=== PATIENT | female | born 1970 | race Caucasian/White ===

== ENCOUNTER 2024-07-21 09:28 | Outpatient (AMB) | payer OTHER, SELFPAY ==
[2024-07-21 09:41] VITALS: BP 138/77; PULSE 87; RESP 18; TEMP 36.3; O2SAT 96; BMI 40.8
--- NOTE | 2024-07-21 09:41 | ORTHONT_ITS ---
Vital signs 07/21/24 09:41 Height 1.6 m Height Method Stated Weight 104.525 kg Weight Measurement Method Standing Scale BMI 40.8 BP 138/77 H Blood Pressure Source Automatic Cuff Blood Pressure Location Right Upper Arm Position Sitting Respiration 18 Pulse 87 Pulse Source Monitor Temp 97.3 F Temp Source Temporal Artery Scan Pulse Oximetry (%) 96 Oxygen Delivery Method Room Air Med/Allergies Allergies & Medications Allergies No Known Allergies Allergy (Verified 07/21/24 09:42) Medication Reconciliation meloxicam 7.5 mg tablet 7.5 mg PO QDAY #45 tabs 07/21/24 [Rx] Exam Exam Patient is in no acute distress and is cooperative with the examination today. Breathing is nonlabored. In no respiratory distress. Patient has no paraspinal tenderness. Spinal deformity cannot be appreciated. The gait of the patient is nonantalgic Bilateral extremities were evaluated and demonstrates sensation intact to light touch. Palpable pedal pulses are present. No significant edema is present. Bilateral knees were examined and the patient has full strength and range of motion.. The right hip was examined. Patient was able to flex to 90 degrees, adduct to 30 degrees, abduct to 40 degrees, internally rotate to 20 degrees, and externally rotate to 20 degrees. Patient has a negative logroll. Stinchfield is negative. The patient is nontender diffusely to touch. The left hip was examined. Patient was able to flex to 90 degrees, adduct to 30 degrees, abduct to 40 degrees, internally rotate to 20 degrees, and externally rotate to 20 degrees. Patient has a Positive logroll and positive Stinchfield X-rays demonstrate significant arthritis of bilateral hips. She has complete joint space obliteration and sclerosis of the femoral head Assessment and Plan Problem List (1) Bilateral hip joint arthritis: Status: Acute Plan: Patient is a pleasant 54-year-old female with bilateral hip pain and arthritis. We discussed different treatment options. We discussed that we recommend weight loss at this time. We will try anti-inflammatories as well as a cortisone injection of the left hip to help us better differentiate her hip from her back pain. We will see her back after her intra-articular hip injection. Office Procedures GNS Level of Care Nursing/Assessment Patient Status: Initial/New Patient Nursing Assessment/Reassesment: Medication Reconciliation and Update PMH in EMR Coordination of Care: Complex Care and Chronic Disease 1-5, Consent,records obtained, informed consent, 1 Ins Authorization, Lab and Imaging orders, Results/Orders obtained and Staff clarify orders New Patient Charge New Patient Point Assignment: 1089 New Patient Point Charge: DRAPERY HEAD FORMER Level 3 (9098-1084) [place] Intake Visit Data Collection New Patient or Established: New Patient (never been to [facility]) Reason for Visit:: BILATERAL OSTEOARTHRITIS HIP Seen by Clinical Staff ONLY (RN/MA): No 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 PCP or OBGYN visit in last 3 months: Yes Hx Now: No Do You Feel Safe at Home: Yes Authorities Contacted: N/A Questionairres Past Medical History Past Medical History Have you ever been diagnosed with any of the following: Respiratory Problems Smoking: No Smoking Cessation Counseling: No Smoking Exposure: No Tobacco Use: No Subjective Visit Visit for: new patient and hip (BILATERAL ) Immunization / Flu Flu Vaccine in the Last 12 Months: Yes Flu Vaccine Exclusion Criteria: Already Received History of Present Illness Chief complaint: Bilateral hip pain Maryam is a 54-year-old female with bilateral hip pain worse on the left. This has been ongoing for Over a year. She is on [place] because of the pain. She has gained about 40 pounds recently. She does have a history of back pain and reportedly has 3 herniated disc. The majority of the pain is in the left groin. She has difficulty putting on socks and shoes Personal History Red flag PMH: none Pain Pain level (0-10): 8 Pain duration: 1 YEAR Pain location: groin Pain quality: sharp and dull Pain timing: night and increases with activity Associated signs & symptoms: stiffness (WHEN SHE STANDS UP FROM SITTING ) Ambulatory data Ambulatory device: cane Walking distance (minutes): 1 Treatments Number of previous injections: 0 Number of Physical Therapy sessions: 0 Improvement with NSAIDS: n/a Review of Systems Review of Systems: All systems negative unless otherwise noted in HPI.
== END 2024-07-21 09:57 | disposition home or self-care (01) ==
LOC: HODSRG 09:28
PROVIDERS: PCP Physician Assistant; Referring Provider Physician Assistant; Supervising Provider Orthopaedic Surgery Adult Reconstructive Orthopaedic Surgery; Visit Provider Orthopaedic Surgery Adult Reconstructive Orthopaedic Surgery
DX: M16.0 Bilateral primary osteoarthritis of hip (principal); M25.562 Pain in left knee; M25.561 Pain in right knee
CPT/HCPCS: 99203; G0463

== ENCOUNTER 2024-09-06 10:43 | Outpatient (AMB) | payer MEDICAID, SELFPAY ==
--- NOTE | 2024-09-06 11:11 | ORTHONT_ITS ---
Vital signs 09/06/24 11:12 Height 1.6 m Height Method Stated Weight 97.749 kg Weight Measurement Method Standing Scale BMI 38.2 BP 149/92 H Blood Pressure Source Automatic Cuff Blood Pressure Location Left Upper Arm Position Sitting Respiration 18 Pulse 93 Pulse Source Monitor Temp 97.7 F Temp Source Temporal Artery Scan Pulse Oximetry (%) 95 Oxygen Delivery Method Room Air Med/Allergies Allergies & Medications Allergies No Known Allergies Allergy (Verified 09/06/24 11:12) Medication Reconciliation meloxicam 7.5 mg tablet 7.5 mg PO QDAY #45 tabs 07/21/24 [Rx Confirmed 09/06/24] Exam Exam Patient is in no acute distress and is cooperative with the examination today. Breathing is nonlabored. In no respiratory distress. Patient has no paraspinal tenderness. Spinal deformity cannot be appreciated. The gait of the patient is nonantalgic Bilateral extremities were evaluated and demonstrates sensation intact to light touch. Palpable pedal pulses are present. No significant edema is present. Bilateral knees were examined and the patient has full strength and range of motion.. The right hip was examined. Patient was able to flex to 90 degrees, adduct to 30 degrees, abduct to 40 degrees, internally rotate to 20 degrees, and externally rotate to 20 degrees. Patient has a negative logroll. Stinchfield is negative. The patient is nontender diffusely to touch. The left hip was examined. Patient was able to flex to 90 degrees, adduct to 30 degrees, abduct to 40 degrees, internally rotate to 20 degrees, and externally rotate to 20 degrees. Patient has a Positive logroll and positive Stinchfield X-rays demonstrate significant arthritis of bilateral hips. She has complete joint space obliteration and sclerosis of the femoral head Assessment and Plan Problem List (1) Bilateral hip joint arthritis: Status: Acute Plan: Patient is a pleasant 54-year-old female with bilateral hip pain and arthritis. We discussed different treatment options. We discussed that we recommend weight loss at this time. She did receive over 5 days relief with the last hip injection. The pain is coming back. She has lost 10 pounds since we last saw her. We would like for her to lose More weight if possible. We discussed total hip replacement in great detail today. It would be done from a lateral approach for her Office Procedures GNS Level of Care Nursing/Assessment Patient Status: Established Patient Nursing Assessment/Reassesment: Medication Reconciliation, Update PMH in EMR and Vital Signs Coordination of Care: Complex Care and Chronic Disease 1-5, Education Complex Pt/Fam, Consent,records obtained, informed consent, Results/Orders obtained and Staff clarify orders Established Patient Charge Established Patient Point Assignment: 95 Established Patient Point Charge: EP Level 3 (80-115) [place] Intake Visit Data Collection New Patient or Established: Established Patient (seen at [facility] within 3 years) Reason for Visit:: HIP INJ FOLLOW UP Seen by Clinical Staff ONLY (RN/MA): No PCP or OBGYN visit in last 3 months: Yes Hx Now: No Do You Feel Safe at Home: Yes Authorities Contacted: N/A Questionairres Past Medical History Past Medical History Have you ever been diagnosed with any of the following: Respiratory Problems Smoking: No Smoking Cessation Counseling: No Smoking Exposure: No Tobacco Use: No Subjective Visit Visit for: follow up visit, hip and injections Immunization / Flu Flu Vaccine in the Last 12 Months: No Flu Vaccine Exclusion Criteria: No Exclusion Criteria History of Present Illness Chief complaint: Bilateral hip pain Maryam is a 54-year-old female with bilateral hip pain worse on the left. This has been ongoing for Over a year. She is on [place] because of the pain. She does have a history of back pain and reportedly has 3 herniated disc. The majority of the pain is in the left groin. She has difficulty putting on socks and shoes Personal History Red flag PMH: none Pain Pain level (0-10): 9 Pain duration: ALL DAY Pain location: groin Pain quality: sharp and dull Pain timing: night and increases with activity Associated signs & symptoms: other (specify) (LOCKING) Ambulatory data Ambulatory device: cane Walking distance (minutes): 1 Treatments Number of previous injections: 1 Improvement with previous injections: No Number of Physical Therapy sessions: 0 Improvement with PT: No Improvement with NSAIDS: no Review of Systems Review of Systems: All systems negative unless otherwise noted in HPI.
[2024-09-06 11:12] VITALS: BP 149/92; PULSE 93; RESP 18; TEMP 36.5; O2SAT 95; BMI 38.2
--- NOTE | 2024-09-06 11:19 | XR_ITS ---
Examination: Bilateral hips, AP pelvis, 5 views Technique: AP, lateral views both hips, AP pelvis, 5 views Exam date and time: September 06, 2024 11:39 AM INDICATIONS: Bilateral hip pain beginning 4 years ago. FINDINGS: Severe narrowing bilateral hip joints with subarticular sclerosis Prominent osteopenia Hips bones of the pelvis intact IMPRESSION: Advanced bilateral hip osteoarthritis
== END 2024-09-06 11:21 | disposition home or self-care (01) ==
PROVIDERS: PCP Physician Assistant; Referring Provider Physician Assistant; Supervising Provider Orthopaedic Surgery Adult Reconstructive Orthopaedic Surgery; Visit Provider Orthopaedic Surgery Adult Reconstructive Orthopaedic Surgery
DX: M16.0 Bilateral primary osteoarthritis of hip (principal); M25.552 Pain in left hip; M25.551 Pain in right hip
CPT/HCPCS: 73522; 99213; G0463

== ENCOUNTER 2025-01-10 10:43 | Outpatient (AMB) | payer MEDICAID, SELFPAY ==
[2025-01-10 11:32] VITALS: BP 134/82; PULSE 82; RESP 18; TEMP 36.6; O2SAT 98; BMI 36.1
--- NOTE | 2025-01-10 11:32 | ORTHONT_ITS ---
Vital signs 01/10/25 11:32 Height 1.64 m Height Method Stated Weight 97.154 kg Weight Measurement Method Standing Scale BMI 36.1 BP 134/82 H Blood Pressure Source Automatic Cuff Blood Pressure Location Left Upper Arm Position Sitting Respiration 18 Pulse 82 Pulse Source Monitor Temp 97.8 F Temp Source Temporal Artery Scan Pulse Oximetry (%) 98 Oxygen Delivery Method Room Air Med/Allergies Allergies & Medications Allergies No Known Allergies Allergy (Verified 01/10/25 11:35) Medication Reconciliation meloxicam 7.5 mg tablet 7.5 mg PO QDAY #45 tabs 07/21/24 [Rx Confirmed 01/10/25] Exam Exam Patient is in no acute distress and is cooperative with the examination today. Breathing is nonlabored. In no respiratory distress. Patient has no paraspinal tenderness. Spinal deformity cannot be appreciated. The gait of the patient is nonantalgic Bilateral extremities were evaluated and demonstrates sensation intact to light touch. Palpable pedal pulses are present. No significant edema is present. Bilateral knees were examined and the patient has full strength and range of motion.. The right hip was examined. Patient was able to flex to 90 degrees, adduct to 30 degrees, abduct to 40 degrees, internally rotate to 20 degrees, and externally rotate to 20 degrees. Patient has a negative logroll. Stinchfield is negative. The patient is nontender diffusely to touch. The left hip was examined. Patient was able to flex to 90 degrees, adduct to 30 degrees, abduct to 40 degrees, internally rotate to 20 degrees, and externally rotate to 20 degrees. Patient has a Positive logroll and positive Stinchfield X-rays demonstrate significant arthritis of bilateral hips. She has complete joint space obliteration and sclerosis of the femoral head Assessment and Plan Problem List (1) Bilateral hip joint arthritis: Status: Acute Plan: Patient is a pleasant 54-year-old female with bilateral hip pain and arthritis. We discussed different treatment options. she has failed conservative treatment and has lost a significant amount of weight. I would do this from a lateral approach the nature and purpose of the total hip replacement, alternative method(s) of treatment, the material risks involved, and the possibility of complications were fully explained to the patient. The patient does NOT have any of the following contraindications to LUIS: - Active infection of the hip joint, OR - Active systemic bacteremia, OR - Active skin infection or open wound at surgical site, OR - Neuropathic arthritis, OR - Severe, rapidly progressive neurological disease, OR - Severe medical condition that makes risks of the surgery outweigh the potential benefit The patient was told the most common risks and complications associated with a total hip replacement include, but are not limited to: blood clots in the leg, fatal pulmonary embolism, dislocation of the prosthesis, intraoperative and postoperative fractures of the femur or acetabulum, infection, failure of the prosthesis or grafting materials, complications from anesthesia, reactions to blood transfusions, postoperative leg length inequality, instability of the hip replacement, nerve damage or injury, vascular injury, delayed wound healing, infection, other injury or even . In addition, there are risks associated with anesthesia given during this operation. Also, the patient was told that after undergoing a total hip replacement there may still be persistent pain or disability. The patient was informed that the success of this operation in part depends upon the mechanical devices which are going to be implanted and that these devices can fail or malfunction, and may need to be repaired or replaced and there are no guarantees as to the longevity of this device or its parts and that it or its parts could fail prematurely. The patient was also notified that during the course of surgery, there may be a need to use bone graft from donors, and that any bone graft used will be carefully screened for communicable diseases, including AIDS, hepatitis, Sameer-Creutzfeldt, or other diseases, but despite the screening procedures, there is a small chance that they could contract one of these diseases. Finally, the patient was asked to follow completely and fully with all advice and recommended treatments, and that recovery and ultimate outcome are affected by their compliance with recommended treatment. We discussed the risks, benefits and treatment alternatives, and the patient is interested in proceeding with surgery. We will try to set this up as expeditiously as possible. Office Procedures GNS Level of Care Nursing/Assessment Patient Status: Established Patient Nursing Assessment/Reassesment: Medication Reconciliation, Update PMH in EMR and Vital Signs Coordination of Care: Complex Care and Chronic Disease 1-5, Education Complex Pt/Fam, Consent,records obtained, informed consent, Results/Orders obtained and Staff clarify orders Established Patient Charge Established Patient Point Assignment: 95 Established Patient Point Charge: EP Level 3 (80-115) [place] Intake Visit Data Collection New Patient or Established: Established Patient (seen at [facility] within 3 years) Reason for Visit:: HIP INJ FOLLOW UP Seen by Clinical Staff ONLY (RN/MA): No PCP or OBGYN visit in last 3 months: Yes Hx Now: No Do You Feel Safe at Home: Yes Authorities Contacted: N/A Questionairres Past Medical History Past Medical History Have you ever been diagnosed with any of the following: Respiratory Problems Smoking: No Smoking Cessation Counseling: No Smoking Exposure: No Tobacco Use: No Subjective Visit Visit for: follow up visit, hip and injections Immunization / Flu Flu Vaccine in the Last 12 Months: No Flu Vaccine Exclusion Criteria: No Exclusion Criteria History of Present Illness Chief complaint: Bilateral hip pain Maryam is a 54-year-old female with bilateral hip pain worse on the left. This has been ongoing for Over a year. She is on [place] because of the pain. She does have a history of back pain and reportedly has 3 herniated disc. The majority of the pain is in the left groin. She has difficulty putting on socks and shoes. she has lost a total of 115 pounds Personal History Red flag PMH: none Pain Pain level (0-10): 9 Pain duration: ALL DAY Pain location: groin Pain quality: sharp and dull Pain timing: night and increases with activity Associated signs & symptoms: other (specify) (LOCKING) Ambulatory data Ambulatory device: cane Walking distance (minutes): 1 Treatments Number of previous injections: 1 Improvement with previous injections: No Number of Physical Therapy sessions: 0 Improvement with PT: No Improvement with NSAIDS: no Review of Systems Review of Systems: All systems negative unless otherwise noted in HPI.
== END 2025-01-10 11:50 | disposition home or self-care (01) ==
LOC: HODSRG 10:43
PROVIDERS: PCP Physician Assistant; Referring Provider Physician Assistant; Supervising Provider Orthopaedic Surgery Adult Reconstructive Orthopaedic Surgery; Visit Provider Orthopaedic Surgery Adult Reconstructive Orthopaedic Surgery
DX: M16.0 Bilateral primary osteoarthritis of hip (principal); M25.552 Pain in left hip; M25.551 Pain in right hip
CPT/HCPCS: 99213; G0463

== ENCOUNTER 2025-02-15 05:40 | Day surgery (SDC) | payer MEDICAID, SELFPAY ==
[2025-02-14 09:10] VITALS: BMI 38.0
[2025-02-14 10:34] LABS: Basophils # (Auto) 0.0 Thou/mm3 (0.0-0.2); Basophils % (Auto) 1 % (0-2.5); Eosinophils # (Auto) 0.2 Thou/mm3 (0.0-0.5); Eosinophils % (Auto) 3 % (0-10); Hematocrit 35.3 % (36.0-46.0); Hemoglobin 11.7 g/dL (12.0-16.0); Immature Granulocytes Auto 0.01 Thou/mm3 (0.00-0.00); Lymphocytes # (Auto) 2.3 Thou/mm3 (1.0-4.8); Lymphocytes % (Auto) 39 % (10-50); Mean Corpuscular HGB Conc 33.1 g/dl (31.0-37.0); Mean Corpuscular Hemoglobin 29.4 pg (25.0-35.0); Mean Corpuscular Volume 89 fL (80-100); Monocytes # (Auto) 0.4 Thou/mm3 (0.0-0.8); Monocytes % (Auto) 6 % (0-12); Neutrophils # (Auto) 3.1 Thou/mm3 (1.8-7.7); Neutrophils % (Auto) 52 % (37-80); Nucleated Red Blood Cell # 0.00 Thou/mm3 (0.00-0.00); Nucleated Red Blood Cell % 0 /100 WBC (0); Platelet Count 277 Thou/mm3 (140-440); RDW Standard Deviation 44.9 fL (36.4-46.3); Red Blood Count 3.98 Miln/mm3 (4.00-5.20); White Blood Count 6.0 Thou/mm3 (3.6-11.0)
[2025-02-14 10:50] LABS: INR 1.0 (0.9-1.3); Partial Thromboplastin Time 26.7 Seconds (22.0-36.0); Prothrombin Time 10.5 Seconds (9.0-12.2)
[2025-02-14 10:59] LABS: Alanine Aminotransferase 12 U/L (10-49); Albumin, Serum 4.1 gm/dL (3.5-5.0); Albumin/Globulin Ratio 1.4 (1.2-2.2); Alkaline Phosphatase 89 U/L (46-116); Anion Gap 6 (7-16); Aspartate Amino Transferase 18 U/L (0-34); BUN/Creatinine Ratio 16 Ratio (12-20); Bilirubin,Total 0.2 mg/dL (0.3-1.2); Blood Urea Nitrogen 13 mg/dL (9-23); Calcium 8.9 mg/dL (8.3-10.6); Calcium (Corrected) 8.9 mg/dL (8.5-10.1); Carbon Dioxide 30.8 mMol/L (20.0-31.0); Chloride 107 mMol/L (98-107); Creatinine (Component) 0.8 mg/dL (0.6-1.3); Estimated Creatinine Clearance 91.6 mL/min (>60); Globulin 3.0 gm/dL (2.3-3.5); Glucose 103 mg/dL (74-106); Osmolality,Calculated 286 (275-295); Potassium 4.2 mMol/L (3.4-5.1); Sodium 144 mMol/L (136-145); Total Protein 7.1 gm/dL (5.7-8.2); eGFR > 60 See Note
[2025-02-15] VITALS (12 sets, daily range): BP systolic 100–134; BP diastolic 66–89; PULSE 75–96; RESP 12–20; TEMP 36.1–36.6; O2SAT 95–100; BMI 38.0
[2025-02-15] MEDS: MELOXICAM 7.5 MG TABLET PO (06:26)
[2025-02-15] MEDS: PREGABALIN 75 MG CAPSULE PO (06:27)
[2025-02-15] MEDS: ACETAMINOPHEN 325 MG TABLET 650 MG PO (06:27)
[2025-02-15] MEDS: RINGERS LACTATED 1000 ML 1,000 ML 20 ML IV (06:27)
--- NOTE | 2025-02-15 06:54 | CONPN_ITS ---
Subjective Subjective Brief History: bilateral hip pain Narrative: Maryam is a 54-year-old female with bilateral hip pain worse on the left. This has been ongoing for Over a year. She is on [place] because of the pain. She does have a history of back pain and reportedly has 3 herniated disc. The majority of the pain is in the left groin. She has difficulty putting on socks and shoes. she has lost a total of 115 pounds Exam Vital Signs Temp Pulse Resp BP Pulse Ox 97 F 75 16 132/77 H 98 02/15/25 06:31 12 06:31 12 06:31 02/15/25 06:31 02/15/25 06:31 Additional findings Additional findings: Patient is in no acute distress and is cooperative with the examination today. Breathing is nonlabored. In no respiratory distress. Patient has no paraspinal tenderness. Spinal deformity cannot be appreciated. The gait of the patient is nonantalgic Bilateral extremities were evaluated and demonstrates sensation intact to light touch. Palpable pedal pulses are present. No significant edema is present. Bilateral knees were examined and the patient has full strength and range of motion.. The right hip was examined. Patient was able to flex to 90 degrees, adduct to 30 degrees, abduct to 40 degrees, internally rotate to 20 degrees, and externally rotate to 20 degrees. Patient has a negative logroll. Stinchfield is negative. The patient is nontender diffusely to touch. The left hip was examined. Patient was able to flex to 90 degrees, adduct to 30 degrees, abduct to 40 degrees, internally rotate to 20 degrees, and externally rotate to 20 degrees. Patient has a Positive logroll and positive Stinchfield X-rays demonstrate significant arthritis of bilateral hips. She has complete joint space obliteration and sclerosis of the femoral head ROS: Negative except as otherwise noted in h&p Objective - Ortho Labs 02/14/25 09:41 02/14/25 09:41 Labs: Laboratory Results - last 24 hr 02/14/25 09:41 WBC 6.0 RBC 3.98 L Hgb 11.7 L Hct 35.3 L MCV 89 MCH 29.4 MCHC 33.1 RDW Std Deviation 44.9 Plt Count 277 Neut % (Auto) 52 Lymph % (Auto) 39 [place] % (Auto) 6 Eos % (Auto) 3 Baso % (Auto) 1 Neut # (Auto) 3.1 Lymph # (Auto) 2.3 [place] # (Auto) 0.4 Eos # (Auto) 0.2 Baso # (Auto) 0.0 Immature Gran # (Auto) 0.01 H Absolute Nucleated RBC 0.00 Immature Gran % 0 Nucleated RBC % 0 PT 10.5 INR 1.0 APTT 26.7 Sodium 144 Potassium 4.2 Chloride 107 Carbon Dioxide 30.8 Anion Gap 6 L BUN 13 Creatinine 0.8 Estim Creat Clear Calc 91.6 eGFR > 60 BUN/Creatinine Ratio 16 Glucose 103 Calculated Osmolality 286 Calcium 8.9 Corrected Calcium 8.9 Total Bilirubin 0.2 L AST 18 ALT 12 Alkaline Phosphatase 89 Total Protein 7.1 Albumin 4.1 Globulin 3.0 Albumin/Globulin Ratio 1.4 Assessment & Plan Diagnosis (1) Bilateral hip joint arthritis: Status: Acute Assessment Additional comments: Assessment and Plan Problem List (1) Bilateral hip joint arthritis: Status: Acute Plan: Patient is a pleasant 54-year-old female with bilateral hip pain and arthritis. We discussed different treatment options. she has failed conservative treatment and has lost a significant amount of weight. I would do this from a lateral approach. She wants to start with the left hip the nature and purpose of the total hip replacement, alternative method(s) of treatment, the material risks involved, and the possibility of complications were fully explained to the patient. The patient does NOT have any of the following contraindications to LUIS: - Active infection of the hip joint, OR - Active systemic bacteremia, OR - Active skin infection or open wound at surgical site, OR - Neuropathic arthritis, OR - Severe, rapidly progressive neurological disease, OR - Severe medical condition that makes risks of the surgery outweigh the potential benefit The patient was told the most common risks and complications associated with a total hip replacement include, but are not limited to: blood clots in the leg, fatal pulmonary embolism, dislocation of the prosthesis, intraoperative and postoperative fractures of the femur or acetabulum, infection, failure of the prosthesis or grafting materials, complications from anesthesia, reactions to blood transfusions, postoperative leg length inequality, instability of the hip replacement, nerve damage or injury, vascular injury, delayed wound healing, infection, other injury or even . In addition, there are risks associated with anesthesia given during this operation. Also, the patient was told that after undergoing a total hip replacement there may still be persistent pain or disability. The patient was informed that the success of this operation in part depends upon the mechanical devices which are going to be implanted and that these devices can fail or malfunction, and may need to be repaired or replaced and there are no guarantees as to the longevity of this device or its parts and that it or its parts could fail prematurely. The patient was also notified that during the course of surgery, there may be a need to use bone graft from donors, and that any bone graft used will be carefully screened for communicable diseases, including AIDS, hepatitis, Sameer-Creutzfeldt, or other diseases, but despite the screening procedures, there is a small chance that they could contract one of these diseases. Finally, the patient was asked to follow completely and fully with all advice and recommended treatments, and that recovery and ultimate outcome are affected by their compliance with recommended treatment. We discussed the risks, benefits and treatment alternatives, and the patient is interested in proceeding with surgery. We will try to set this up as expeditiously as possible. Documentation for date of: 02/15/25
--- NOTE | 2025-02-15 07:15 | CHAP ---
Visited with patient and gave encouragement and prayer before patient's procedure.
--- NOTE | 2025-02-15 07:30 | XR_ITS ---
EXAMINATION: Left hip 2 views TECHNIQUE: AP left hip 2 views Date and time: September 15, 2024, 0919 hours INDICATIONS: Postop hip replacement today. FINDINGS: Total left hip arthroplasty. Satisfactory alignment No fracture IMPRESSION: Total left hip arthroplasty with satisfactory alignment
--- NOTE | 2025-02-15 09:49 | XR_ITS ---
Examination: Left hip AP, lateral, AP pelvis 3 views Technique: Hip AP lateral, AP pelvis, 3 views Exam date and time: February 15, 2025, 1144 hours INDICATIONS: Postop left hip replacement FINDINGS: Total left hip arthroplasty. Satisfactory alignment Prominent osteopenia. Advanced right hip osteoarthritis IMPRESSION: Total left hip arthroplasty with satisfactory alignment.
--- NOTE | 2025-02-15 09:49 | PD.SUROPNT ---
Date of Procedure 02/15/25 Pre Op Diagnosis right hip osteoarthritis Post Op Diagnosis right hip osteoarthritis Procedure right total hip replacement Findings osteophytes full thickness cartilage loss Procedure Description Indications: The patient is a 55y.o. year-old with a longstanding history of left hip pain. After considering the patient's condition and the impact of their hip injury on the patient's quality of life and risks of nonoperative treatment, total hip replacement was offered as a reasonable option. Prior to the surgery I discussed the nature of the hip replacement surgery including alternatives to surgery and the purpose of, and indications for proceeding with surgery. I discussed that this surgery is a shared decision between the patient and the surgeon. Risks and benefits and alternatives of the procedure have been explained to the patient and their family. Anesthesia complications and risks include but are not limited to stroke, heart attack, and . The surgical risks include but are not limited to infection, instability/dislocation, bleeding, nerve and blood vessel injury, deep vein thrombosis, pulmonary embolus, stiffness, pain, scar, need for reoperation, leg length discrepancy, thigh numbness, weakness, and mechanical failure of the implant including loosening, metal complications, metal allergy, wear or breakage. I discussed the expected recovery from surgery and the importance of compliance with all our pre and post-operative recommendations in order to maximize the recovery. The patient/family understands the risks of loss of life, loss of limb and, loss of function and wishes to proceed. They understand they are at increased risk for infection given their body habitys. A signed and witnessed consent was obtained and placed in the chart. Patient Positioning: The patient was placed in the lateral decubitus position on a standard table using a pegboard. An axillary role was placed. All extremities were padded to ensure adequate protection. A marinelli catheter was aseptically inserted. Time Out: A timeout was performed prior to the procedure which verified the correct patient, positioning, operation to be performed, operative site, antibiotics, allergies, imaging, and any other concerns. All parties were in agreement. Procedure in detail: The operative site was cleaned and draped in the usual sterile fashion. A final timeout was performed with all parties in agreement. We first placed percutaneous klever pins above the ASIS and attached a hip array. A modified anterolateral approach to the hip was utilized. A 16cm skin incision was made centered over the greater trochanter in line with the femur. This was taken down through skin and subcutaneous tissue using a 10 blade. Bleeding was controlled using electrocautery. The fascia was identified and split in line with the femur. The charnley retractor was then placed. The abductor insertion was identified and a split made in the anterior 1/3 of the tendon proximally. Retractors were placed and the gluteus minimus was visualized. A capsulotomy was made down to the femoral neck anterior to the minimus. A split was then made in the anterior 1/3 of the vastus lateralis. A retractor was then placed anterior to the femoral shaft, the tendon was tagged with #1 ethibond sutures and a U-shaped split was made in the anterior 1/3 of the abductor tendon being careful to leave enough tendon to re-attach. The hip was then gently externally rotated as the anterior tissues were taken down with the tendon and capsule as one sleeve. Once the anterior tissue had been release off of bone a bone hook was placed and the hip was gently dislocated. Retractors were placed around the femoral neck and the femoral neck osteotomy was then made to freshen up the cut. The femoral head removed. The leg was then placed in extension and retractors were placed anterior and posterior to the acetabulum. We first mapped the acetabulum and pelvis with a probe. The inferior capsule was release to improved visualization and the labrum and osteophytes around the acetabulum were removed. The acetabulum was then reamed to bleeding bone with adequate wall coverage and the cup was impacted into place using the [employer] robot. Screws were then placed followed by the liner which was impacted and confirmed to be seated. We then turned our attention to the femur. The leg was brought into external rotation and the femur was exposed. A canal finder was used followed by a box osteotomy and the femur was broached sequentially. The trial stem was then left in and the hip was trialed using various neck offsets and head sizes until the appropriate size was found based on leg length, stability. Once we were satisfied with the construct a cross-table AP pelvis radiograph was obtained to confirm appropriate positioning and sizing. The hip was then dislocated and the trials were then removed and the final stem impacted into placed. The hip was then again trialed and the appropriate head size identified. The davidson taper was then cleaned and dried and the final head impact into place and tested. The acetabulum was irrigated and confirmed to be free of debris. The hip was then reduced and taken through range of motion. The hip was stable in abduction and external rotation, adduction and external rotation, flexion past 90 degrees and internal rotation past 20 degrees. It did not sublux throughout range of motion and no impingement was detected. Leg lengths were appropriately restored based on preoperative leg lengths and intraoperative testing. Lengths and offset were further verified with the robot. We then removed the pins and the greater troch marker. The hip was then copiously irrigated with dilute betadine followed by normal saline. The hip was then injected with the cocktail per protocol The hip was the closed in layers. The abductor tendon was closed with #1 ethibond. The fascia was closed with 0 Vicryl followed by an 0 V-lock. . The deep layer was closed with 0-Vicryl and the subcutaneous layer by a 2-0 Vicryl. The subdermal layer was closed with a 3-0 monocryl. The skin was then cleaned and dried and steri-strips placed followed by a sterile dressing. The drapes were then taken down and the patient was placed supine. Leg lengths were confirmed to be appropriate and the patient's lower extremities were warm and well perfused with brisk capillary refill and palpable pulses. The patient was then awoken, transferred to the [facility] and taken to the PACU in stable condition. They tolerated the procedure well. The patient's family/caregiviers were made aware of their condition. Postoperative plan Activity: WBAT, no hip precautions , no active hip abduction DVT Prophylaxis: aspirin 81mg BID Antibiotics: Standard postoperative antibiotics x 24 hours Implants: [place] 52 cup, 5 standard insignia, 2 screws, standard liner, 36-2.5 head Implants Implants comments: eulalia 52 cup, 25 -2.5, 2 screws, 5 standard Pathology / specimen None Estimated Blood Loss 150 Surgeon Gómez Duffy MD Surgical Staff Operation Date: 02/15/25 07:30 Case Staff Anesthesiologist: Brian Mercado RN First Assistant: Marce Woodall
--- NOTE | 2025-02-15 10:49 | SUR.PHASEI ---
1023: Pt received in [facility] via [email or web address] Report from Katiana RECINOS and Dr. Brown. Pt obtunded. Resp even, unlabored. VS stable. Dressing to left hip x2 dry, clean, intact. Bilateral pedal pulses strong, regular. 1047: Pt is arousable with eye opening then drifts back to sleep. Resp even, unlabored. VS stable. Dressing remains dry, clean, intact. Bilateral pedal pulses strong, regular. No c/o pain.
--- NOTE | 2025-02-15 11:18 | SUR.PHASEII ---
1110: Pt becoming more awake. Staying awake longer but eventually drifts back to sleep. Resp even, unlabored. VS stable. Dressing remains dry, clean, intact. Bilateral pedal pulses strong, regular. States she has a small amount of pain with movement.
[2025-02-15] MEDS: fentaNYL CIT INJ 50 mCg/ML AMP 2ML 25 MCG IVP ×2 (11:25→11:51)
--- NOTE | 2025-02-15 11:28 | SUR.PHASEII ---
1125: Pt more alert. Pt has c/o pain to left hip. Rates pain level 3/10. Resp even, unlabored. VS stable. Pain medication given per order.
--- NOTE | 2025-02-15 11:30 | SUR.PHASEII ---
1130: Continue to await radiology to take ordered x-ray.
--- NOTE | 2025-02-15 12:45 | SUR.PHASEII ---
1142: Radiology here to take ordered x-rays. 1208: Radiology completed x-rays. Pt tolerated procedure with no complaints voiced. Dr. Duffy in to assess pt and review x-rays. 1210: Physical Therapy here to assess pt. 1232: PT assessment complete. Pt tolerated assessment with no complaints voiced. 1255: Pt dressed and ready for discharge. Pt and mother stated understanding of discharge instructions. Pt discharged from [facility] in stable condition.
== END 2025-02-15 12:55 | disposition home or self-care (01) ==
PROVIDERS: Family Provider Orthopaedic Surgery Adult Reconstructive Orthopaedic Surgery; Referring Provider Anesthesiology; Visit Provider Orthopaedic Surgery Adult Reconstructive Orthopaedic Surgery
PROC: (CPT 27130; principal; 2025-02-15 07:30)
DX: M16.11 Unilateral primary osteoarthritis, right hip (principal); M25.752 Osteophyte, left hip
CPT/HCPCS: 27130; S2900; 36415; 73501; 73502; 80048; 80053; 85025; 85610; 85730; 97162; A4217; A4649; C1713; C1776; J0131; J0690; J1100; J1171; J1885; J2250; J2371; J2405; J2704; J3010; J3490; J7120; J7999; A4648; A9270

== ENCOUNTER 2025-03-07 13:50 | Outpatient (AMB) | payer MEDICAID, SELFPAY ==
[2025-03-07 14:18] VITALS: BP 134/83; PULSE 82; RESP 16; TEMP 36.8; O2SAT 98; BMI 37.8
--- NOTE | 2025-03-07 14:18 | PD.ORTHCLVIS ---
Vital signs 03/07/25 14:18 Height 1.63 m Height Method Stated Weight 100.329 kg Weight Measurement Method Standing Scale BMI 37.8 BP 134/83 H Blood Pressure Source Automatic Cuff Blood Pressure Location Left Upper Arm Position Sitting Respiration 16 Pulse 82 Pulse Source Monitor Temp 98.2 F Temp Source Temporal Artery Scan Pulse Oximetry (%) 98 Oxygen Delivery Method Room Air Med/Allergies Allergies & Medications Allergies No Known Allergies Allergy (Verified 03/07/25 14:19) Medication Reconciliation ferrous sulfate 325 mg (65 mg iron) tablet 325 mg PO EVERYOTHERDAY 02/14/25 [History Confirmed 03/07/25] gabapentin 300 mg capsule 900 mg PO Q8H 02/14/25 [History Confirmed 03/07/25] hydrocodone 5 mg-acetaminophen 325 mg tablet 1 tab PO Q8H PRN pain 02/14/25 [History Confirmed 03/07/25] omeprazole 40 mg capsule,delayed release 40 mg PO DAILY 02/14/25 [History Confirmed 03/07/25] pramipexole 0.5 mg tablet 0.5 mg PO DAILY 02/14/25 [History Confirmed 03/07/25] venlafaxine 75 mg capsule,extended release 24 hr 75 mg PO DAILY 02/14/25 [History Confirmed 03/07/25] aspirin 81 mg tablet,delayed release 81 mg PO BID #60 tabs 02/15/25 [Rx Confirmed 03/07/25] doxycycline hyclate 100 mg tablet 100 mg PO BID #14 tabs 02/15/25 [Rx Confirmed 03/07/25] gabapentin 300 mg capsule 300 mg PO .qhs #30 caps 02/15/25 [Rx Confirmed 03/07/25] sennosides 8.6 mg-docusate sodium 50 mg tablet (Senna-S) 1 tab-cap PO QDAY #30 tabs 02/15/25 [Rx Confirmed 03/07/25] acetaminophen 500 mg tablet (Acetaminophen Extra Strength) 1,000 mg (2 x 500 mg) PO Q6H PRN pain #90 tabs 02/16/25 [Rx Confirmed 03/07/25] oxycodone 5 mg tablet 5 mg PO Q6H PRN pain #28 tabs 02/16/25 [Rx Confirmed 03/07/25] meloxicam 7.5 mg tablet 7.5 mg PO QDAY #45 tabs 03/07/25 [Rx] Exam Exam Patient is in no acute distress and is cooperative with the examination today. Breathing is nonlabored. In no respiratory distress. Patient has no paraspinal tenderness. Spinal deformity cannot be appreciated. The gait of the patient is nonantalgic Bilateral extremities were evaluated and demonstrates sensation intact to light touch. Palpable pedal pulses are present. No significant edema is present. Bilateral knees were examined and the patient has full strength and range of motion.. The right hip was examined. Patient was able to flex to 90 degrees, adduct to 30 degrees, abduct to 40 degrees, internally rotate to 20 degrees, and externally rotate to 20 degrees. Patient has a negative logroll. Stinchfield is negative. The patient is nontender diffusely to touch. Left hip incision is clean dry and intact Assessment and Plan Problem List (1) Bilateral hip joint arthritis: Status: Acute Plan: Patient is a pleasant 54-year-old female with bilateral hip pain and arthritis. She is status post left total hip replacement and is doing well. She Does not want to go to therapy as she reports she is doing Office Procedures GNS Level of Care Nursing/Assessment Patient Status: Established Patient Nursing Assessment/Reassesment: Medication Reconciliation, Update PMH in EMR and Vital Signs Coordination of Care: Complex Care and Chronic Disease 1-5, Education Complex Pt/Fam, Consent,records obtained, informed consent, Results/Orders obtained and Staff clarify orders Established Patient Charge Established Patient Point Assignment: 95 Established Patient Point Charge: Level 3 (80-115) MA Intake Visit Data Collection New Patient or Established: Established Patient (seen at [facility] within 3 years) Reason for Visit:: 2WK L LUIS Seen by Clinical Staff ONLY (RN/MA): No PCP or OBGYN visit in last 3 months: Yes Hx Now: No Do You Feel Safe at Home: Yes Authorities Contacted: N/A Questionairres Past Medical History Past Medical History Have you ever been diagnosed with any of the following: Neurological Problems Seizures: No Cardiology Problems Congestive Heart Failure: No Hypertension: Yes Respiratory Problems Chronic Obstructive Pulmonary Disease (COPD): No Sleep Apnea: Yes (waiting for CPAP, recent diagnosis) Smoking: No Smoking Cessation Counseling: No Smoking Exposure: No Tobacco Use: No Stomache/Intestinal Problems Obesity: Yes Genital/Urinary Problems Renal Disease: No Reproductive Problems Endometriosis: No Genital Herpes: No Gonorrhea: No Pelvic Inflammatory Disease: No Previous Pregnancies: Yes Syphilis: No Uterine Prolapse: No Musculoskeletal Problems Arthritis: Yes Degenerative Disk Disease: Yes Endocrine Problems Diabetes Mellitus Type 1: No Diabetes Mellitus Type 2: No Psychologic Problems Anxiety: Yes Other Problems Hospitalization: Yes (surgery) Shingles: No Blood Transfusions: No Anesthesia Reactions: No Clostridium Difficile: No Cancer: No Surgical History Hysterectomy: Yes Subjective Visit Visit for: follow up visit, hip and injections Immunization / Flu Flu Vaccine in the Last 12 Months: No Flu Vaccine Exclusion Criteria: No Exclusion Criteria History of Present Illness Chief complaint: Bilateral hip pain Maryam is a 54-year-old female with bilateral hip pain worse on the left. She is status post left total hip replacement and is doing well. Personal History Red flag PMH: none Pain Pain level (0-10): 9 Pain duration: ALL DAY Pain location: groin Pain quality: sharp and dull Pain timing: night and increases with activity Associated signs & symptoms: other (specify) (LOCKING) Ambulatory data Ambulatory device: cane Walking distance (minutes): 1 Treatments Number of previous injections: 1 Improvement with previous injections: No Number of Physical Therapy sessions: 0 Improvement with PT: No Improvement with NSAIDS: no Review of Systems Review of Systems: All systems negative unless otherwise noted in HPI.
== END 2025-03-07 14:54 | disposition home or self-care (01) ==
LOC: HODSRG 13:50
PROVIDERS: PCP Physician Assistant; Referring Provider Physician Assistant; Supervising Provider Orthopaedic Surgery Adult Reconstructive Orthopaedic Surgery; Visit Provider Orthopaedic Surgery Adult Reconstructive Orthopaedic Surgery
DX: M16.11 Unilateral primary osteoarthritis, right hip (principal); M25.552 Pain in left hip; M25.551 Pain in right hip; Z96.642 Presence of left artificial hip joint; I10 Essential (primary) hypertension; E66.9 Obesity, unspecified; Z68.37 Body mass index [BMI] 37.0-37.9, adult
CPT/HCPCS: 99213; G0463